=== PATIENT | male | born 1975 | race Caucasian/White ===

== ENCOUNTER 2025-01-26 15:31 | Emergency (ER) | payer BC, SELFPAY ==
[2025-01-26 15:34] VITALS: BP 148/101
[2025-01-26 16:07] LABS: % Basophils 0.7 % (0-2); % Eosinophils 0.7 % (0-6); % Immature Granulocytes 0.5 % (0-0.5); % Lymphocytes 21.7 % (20.5-51.1); % Monocytes 10.6 % (1.7-9.3); % Neutrophils 65.8 % (42.2-75.2); Absolute Basophils 0.1 10^3/uL (0-0.2); Absolute Eosinophils 0.1 10^3/uL (0-0.7); Absolute Lymphocytes 1.9 10^3/uL (1.2-3.4); Absolute Monocytes 0.9 10^3/uL (0.1-0.6); Absolute Neutrophils 5.7 10^3/uL (1.4-6.5); Hematocrit 42.7 % (39.0-52.0); Mean Corp Hgb Conc. 35.1 g/dL (33.0-37.0); Mean Corpuscular Hgb 29.1 pg (27.0-31.0); Mean Corpuscular Volume 82.9 fL (80.0-94.0); Mean Platelet Volume 8.7 fL (7.4-10.4); Nucleated Red Blood Cells % 0 % (-); Platelet Count 250 10^3/uL (130-400); Red Blood Cell Count 5.15 10^6/uL (4.70-6.10); Red Cell Dist. Width 12.4 % (11.5-14.5); White Blood Cell Count 8.7 10^3/uL (4.8-10.8)
[2025-01-26 16:08] LABS: Urine Albumin Negative (Neg - Trace); Urine Bilirubin Negative (Negative); Urine Character Clear (Clear); Urine Color Yellow; Urine Glucose Negative (Negative); Urine Ketone Negative (Negative); Urine Leukocyte 1+ (Negative); Urine Nitrite Negative (Negative); Urine Occult Blood Negative (Negative); Urine Specific Gravity 1.015 (<1.030); Urine Urobilinogen Negative (Neg - 1+)
[2025-01-26 16:17] LABS: Urine Red Blood Cell 0-2 /HPF (0-2); Urine Squamous Cell 16-20 /LPF (Few)
[2025-01-26 16:18] LABS: Urine Bacteria Few (Negative)
[2025-01-26 16:24] LABS: ALT (SGPT) 20 U/L (0-50); AST (SGOT) 21 U/L (17-59); Albumin 5.1 g/dl (3.5-5.0); Alkaline Phosphatase 65 U/L (38-126); Blood Urea Nitrogen 21 mg/dl (9-20); Calcium 10.3 mg/dl (8.4-10.2); Carbon Dioxide 28 mmol/L (22-30); Chloride 105 mmol/L (98-107); Glucose 99 mg/dl (70-99); Potassium 4.2 mmol/L (3.5-5.1); Sodium 144 mmol/L (135-145); Total Bilirubin 0.8 mg/dl (0.2-1.3); Total Protein 7.8 g/dl (6.3-8.2); eGFR > 60.00
--- NOTE | 2025-01-26 18:04 | EDRN ---
This RN assumed care of this pt at this time.
--- NOTE | 2025-01-26 18:21 | ED.GENMED ---
History of Present Illness
General
Chief Complaint: Flank Pain
Source: patient
Exam Limitations: none
Time Seen by Provider: 01/26/25 18:03
Nursing documentation reviewed up to this point in time: agreed with
History of Present Illness
History of Present Illness:
The patient is a 50-year-old male with history of diabetes, hyperlipidemia presenting to the emergency department for evaluation of right inguinal pain. Patient reports symptoms have been intermittent over the past 6 months and describes a dull
aching pain in his right lower back which radiates into his right groin and down his right leg. About 6 months ago�patient was seen at urgent care and treated for possible kidney stone. Symptoms seem to resolve briefly although have returned and
seem to be worsening. Patient states symptoms are worse with certain positions. He denies any dysuria although states his urine has been 'dark'. He feels that he has some mild weakness in his right lower leg intermittently, as well. No
associated chest pain, shortness of breath, nausea, or abdominal pain. No testicular pain. No bowel/bladder incontinence. No recent trauma or inciting events.
Of note�patient states he was seen by his primary care a few weeks ago where he had an outpatient noncontrast CT scan of abdomen performed which did not show a kidney stone.
Review of Systems
Review of Systems
Allergies reviewed?: Yes
All Other Systems: ROS reviewed and negative except as documented in HPI and ROS
Phy Exam
Physical Exam
Physical Exam:
Vitals: Hypertensive, otherwise vital signs stable. Afebrile
General: Patient is well appearing, no acute distress
Skin: Warm and dry, no rashes or lesions
Head: Normocephalic, atraumatic
Eyes: Sclera nonicteric. EOMs intact. No nystagmus.
Throat: Protecting airway
Neck: Normal ROM, no cervical spine tenderness, no meningismus
Cardiac: Regular rate and rhythm, no murmurs.
Pulm: Normal respiratory effort, no wheezes, rales, rhonchi heard on exam.
Abdomen: Abdomen soft and nontender. No tenderness to McBurney's point. Negative Lay sign. No CVA tenderness. No palpable mass or hernia.
Back: Mild tenderness to palpation of right lower back/buttock or SI joint. No rash or ecchymoses.
Extremities: No evidence of cyanosis or edema. Strength 5 out of 5 in bilateral lower extremities with normal sensation. Palpable DP pulse bilaterally.
Neuro: AAOx3. Grossly intact.
Psychiatric: Normal affect.
Course
Orders/Labs/Results
Orders:
Orders
01/26/25 15:48
CMP [Comprehensive Metabolic Panel] Urgent
Complete Blood Count/With Diff Urgent
Creatine Phosphokinase Urgent
Comment: ADD ON
Lipase Urgent
Comment: ADD ON
Urinalysis Reflex To Culture Urgent
Date Specimen was Collected: 01/26/25
Time Specimen was Collected: 15:41
Urine Microscopic Reflex Cult Urgent
Urine Culture Urgent
JAVIER Source: U
Specimen Description:
Date Specimen was Collected: 01/26/25
Time Specimen was Collected: 15:41
01/26/25 18:16
Add On- LAB Urgent
Tests Added?: lipase
0.9% Sodium Chloride 1000 ml [Nss] 1,000 ml IV BOLUS
Ketorolac [Toradol] 15 mg IV NOW STA
Lidocaine [Lidocaine 4% Patch] 1 patch TOPICAL NOW STA
Apply Lidocaine patch(s) to:: R lower back
01/26/25 18:17
CT Abd/pelvis W Iv Cont Urgent
Comment:
Reason For Exam: Right inguinal pain radiating into right leg
01/26/25 19:15
Add On- LAB Urgent
Tests Added?: CK
Abnormal Lab Results
01/26/25
15:48
Absolute Monos (auto) 0.9 H 10^3/uL
(0.1-0.6)
Monocytes % 10.6 H %
(1.7-9.3)
BUN 21 H mg/dl
(9-20)
Calcium 10.3 H mg/dl
(8.4-10.2)
Albumin 5.1 H g/dl
(3.5-5.0)
Leukocyte Esterase Rfl 1+ A
(Negative)
Urine Bacteria (Reflex) Few A
(Negative)
01/26/25 15:48
01/26/25 15:48
Vital Signs
Initial and Last Documented VS:
Initial Vital Signs
Temp Pulse Resp BP Pulse Ox
98.6 F 73 18 148/101 97
01/26/25 15:34 01/26/25 15:34 01/26/25 15:34 01/26/25 15:34 01/26/25 15:34
Last Documented Vital Signs
Temp Pulse Resp BP Pulse Ox
98.6 F 73 16 140/92 98
01/26/25 15:34 01/26/25 20:30 01/26/25 20:30 01/26/25 20:30 01/26/25 20:30
MDM/Problems Addressed
Differential Diagnosis Includes:
Not limited to: Muscle strain, static neuropathy, ureterolithiasis, zoster, etc.
MDM/Problems Addressed:
50-year-old male presenting with 6 months of intermittent right lower back pain rating into the groin/right leg which does seem worse with movement. No infectious symptoms or recent trauma. No associated bowel/bladder incontinence, saddle
paresthesias, or numbness tingling in lower extremities. Patient hypertensive on arrival although improved by my assessment. Otherwise stable vital signs. Physical exam as above. Patient well-appearing, in no apparent distress. Abdomen is soft
nontender without palpable mass or inguinal bulge. There is no CVA tenderness bilaterally or true flank pain. He does have some reproducible pain in right lower back/buttock near SI joint. Basic labs and urinalysis initiated in triage without
clinically significant abnormalities. Labs without leukocytosis or renal insufficiency. Urine shows no evidence of red blood cells or infection. Ultimately�feel location of pain most consistent with possible sciatica pain/muscular low back pain.
Patient is neurologically intact without findings concerning for cauda equina. Low suspicion for acute intra-abdominal process given patient is afebrile with benign abdominal exam and no leukocytosis. Will check CK. Given persistence of
symptoms�will obtain CT imaging. Will give IV Toradol, IVF, apply lidocaine patch and reassess.
Update: CK normal. On reassessment�patient has had complete resolution of symptoms with Toradol and lidocaine patch. He remains very well and comfortable appearing. CT report pending.
Update: CT report without acute findings. Patient aware of history of cholelithiasis although do not suspect contributing to symptoms today. At this point�high suspicion for musculoskeletal back pain. Patient remains in no distress with
significant improvement symptoms. Will discharge home with prescription for lidocaine patch and advised NSAIDs/Tylenol at home. He will follow closely with primary care. Close return precautions discussed. Patient comfortable with this plan.
Chronic conditions affecting care:
N/A
Acute Exacerbation and/or Progression of Chronic Illness:
N/A
*Radiology
Radiology exam reviewed: radiology read reviewed
*Pulse Oximetry
Patient hypoxic: no
*EKG
Interpreted by ED Provider?: NA
*Erp Manager Interpretation
Rate: Erp Manager- N/A
*Critical Care Note
Total Time (30-74mins, 75-104mins- exclusive of procedures): Not Applicable
ED Attending Note
-
Portions of this chart may have been created with voice recognition software.� Occasional wrong word or��sound alike� substitutions may have occurred due to the inherent limitations of voice recognition software.
Discharge Plan
Departure
Patient Disposition: Home (Routine Discharge)
Date of Disposition: 01/26/25
Time of Disposition: 21:45
Patient with high blood pressure during this ER visit?: Yes
Condition: Good
Covid-19: Not Applicable
Discharge Problem:
Low back pain radiating to right leg
Instructions: Sciatica ED, Low back pain - ED discharge instructions, BLOOD PRESSURE
Prescriptions:
New
lidocaine 5 % adhesive patch,medicated
1 patch topical DAILY Qty: 15 0RF
Rx Instructions:
to affected area
Referrals:
Koko Oliveira DO [Family Provider] - Follow up in 5-7 days
Activity Restrictions/Additional Instructions:
Return to the emergency department with any high fevers, severe abdominal/back pain, intractable nausea/vomiting, inability urinate, loss of bowel/bladder control, numbness/weakness in lower extremities, or any other concerns
-As discussed�your CT scan showed no evidence of a kidney stone. I suspect you may have sciatic nerve pain/musculoskeletal back pain. You were given IV Toradol and a lidocaine patch with complete resolution symptoms
-A prescription for lidocaine patches has been sent to your pharmacy. You can apply this to affected area daily. You can also take Motrin and/or Tylenol as needed for discomfort
-Your CT scan did show a gallstone. If you notice severe upper abdominal pain, intractable nausea/vomiting, or fevers please present back to the emergency department. I would recommend a low-fat diet
-Stay well-hydrated.
-Follow-up with your primary care provider for further evaluation/management and to ensure that symptoms are improving
Monitor your symptoms closely and return to the emergency department with any acute worsening/new symptoms or any other concerns
Interventions
Interventions:
*Risk Screen - Suicide Last Done: 01/26/25 15:34
*General Assessment Last Done: 01/26/25 18:30
*Neglect/Abuse Screening Last Done: 01/26/25 15:34
*ED- Fall Risk Assessment Last Done: 01/26/25 18:30
*ED COVID-19 Vaccine History Last Done: 01/26/25 18:30
*Nursing Disposition Last Done: 01/26/25 21:57
FS-Yfswra-Qeoywwxtea Assessment Last Done: 01/26/25 18:45
ED-Male Genitourinary Assessment Last Done: 01/26/25 18:45
Discharge Date and Time
Discharge Date/Time: 01/26/25 21:59
Print Language: MACEDONIAN
[2025-01-26 18:30] VITALS: BMI 32.1
--- NOTE | 2025-01-26 18:31 | EDRN ---
Pt states he came in for R lower back pain radiating into R groin, has had for couple of months, much worse over last month. Pain at this time 5/10. NO nausea now but at times when eats. Last BM was this am and normal reports pt.
[2025-01-26] MEDS: NSS 1000 IV (18:38)
[2025-01-26 18:40] VITALS: BP 131/98
[2025-01-26] MEDS: TORADOL 15 MG IV (18:42)
[2025-01-26] MEDS: LIDOCAINE 4% PATCH 1 PATCH TOPICAL (18:42)
[2025-01-26 18:51] LABS: Lipase 216 U/L (23-300)
[2025-01-26 19:00] VITALS: BP 140/90
--- NOTE | 2025-01-26 19:18 | EDRN ---
Brian SANDS in room w/pt at this time.
[2025-01-26 19:53] LABS: Creatine Phosphokinase 55 U/L (55-170)
[2025-01-26 20:30] VITALS: BP 140/92
== END 2025-01-26 21:59 | disposition home or self-care (01) ==
LOC: EMR 15:31
PROVIDERS: Student in an Organized Health Care Education/Training Program; EMERGENCY PHYSICIAN Emergency Medicine; FAMILY PHYSICIAN Family Medicine
DX: M54.50 Low back pain, unspecified (principal); M79.604 Pain in right leg; R03.0 Elevated blood-pressure reading, without diagnosis of hypertension; E11.9 Type 2 diabetes mellitus without complications; E78.5 Hyperlipidemia, unspecified
CPT/HCPCS: 99285; 96374; 96361; 74177; 80053; 81003; 81015; 82550; 83690; 85025; 87077; 87086; Q9967